=== PATIENT | female | born 1955 | race Caucasian/White ===

== ENCOUNTER → 2016-11-08 | Outpatient (CLI) | payer MEDICAID | LOC: FIMAGING 14:32 | PROVIDERS: ATTEND Family Medicine | DX: Z12.31 Encounter for screening mammogram for malignant neoplasm of breast (principal) | CPT/HCPCS: G0202 ==

== ENCOUNTER → 2017-07-03 | Outpatient (CLI) | payer MEDICAID | LOC: CIMAGING 11:27 | PROVIDERS: ATTEND Family Medicine | DX: S22.32XA Fracture of one rib, left side, initial encounter for closed fracture (principal); M43.16 Spondylolisthesis, lumbar region; M47.897 Other spondylosis, lumbosacral region; M46.97 Unspecified inflammatory spondylopathy, lumbosacral region; F41.9 Anxiety disorder, unspecified; I70.0 Atherosclerosis of aorta | CPT/HCPCS: 71101-PO; 72100-PO; 73502-PO ==

== ENCOUNTER → 2018-01-29 | Outpatient (CLI) | payer MEDICAID | LOC: FIMAGING 11:58 | PROVIDERS: ATTEND Family Medicine | DX: Z12.31 Encounter for screening mammogram for malignant neoplasm of breast (principal) ==

== ENCOUNTER → 2018-05-22 | Outpatient (CLI) | payer MEDICAID | LOC: CIMAGING 14:33 | PROVIDERS: ATTEND Family Medicine | DX: M51.37 Other intervertebral disc degeneration, lumbosacral region (principal); I70.0 Atherosclerosis of aorta; I10 Essential (primary) hypertension; F41.9 Anxiety disorder, unspecified | CPT/HCPCS: 72100-PO ==